=== PATIENT | female | born 2005 | race Hispanic/Latino ===

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

== ENCOUNTER 2024-02-29 15:55 | Emergency (ER) | payer BC, MEDICAID ==
[~2024-02-29] VITALS: Ht 162.6 cm; Wt 54.4 kg
--- NOTE | 2024-02-29 16:21 | ERN ---
General Chief Complaint: Abdominal Pain Stated Complaint: ABD PAIN Time Seen by MD: 16:02 History of Present Illness Initial Comments 18-year-old female who presents for lower abdominal pain. Patient reports she was in her normal state of health until about 2 hours ago. She ate tacos and afterwards developed significant abdominal discomfort. No nausea or vomiting. No diarrhea. No urinary symptoms. No vaginal bleeding or discharge. Medical history: Asthma Surgical history: Appendectomy, tonsillectomy Denies Allergies: Coded Allergies: No Known Drug Allergies (Verified Allergy, 09/13/11) Home Meds Active Scripts Acetaminophen (Acetaminophen) 500 Mg Tablet, 500 MG PO Q4PRN for 5 Days, #15 TAB Prov:JOSÉ MANUEL PLASCENCIA 04/17/23 Ibuprofen (Ibuprofen) 600 Mg Tablet, 600 MG PO Q6H PRN for PAIN, #15 TAB Prov:JOSÉ MANUEL PLASCENCIA 04/17/23 D-Methorphan Hb/P-Epd HCl/Bpm (Bromfed Dm Cough Syrup) 2 Mg-30 Mg-10 Mg/5 Ml Syrup, 5 ML PO TID for 5 Days, #100 ML Prov:JOSÉ MANUEL PLASCENCIA 04/17/23 Oseltamivir Phosphate (Tamiflu) 75 Mg Cap, 75 MG PO BID for 5 Days, #10 CAP Prov:JOSÉ MANUEL PLASCENCIA 04/17/23 Past Medical History Past Medical History: Anxiety, Asthma Past Surgical History: Appendectomy, Tonsillectomy Female( History) LMP: Feb 08, 2024 ROS Dictation CONSTITUTIONAL: No chills, no fever, no weakness, no diaphoresis, no malaise. HEAD/FACE: No signs of trauma. EENT: No eye pain, no blurred vision, no tearing, no double vision, no ear pain, no ear discharge, no nose pain, no nasal congestion, no throat pain, no throat swelling, no mouth pain. RESPIRATORY: No cough, no orthopnea, no SOB, no stridor, no wheezing. CARDIOVASCULAR: No chest pain, no edema, no palpitations, no syncope. GASTROINTESTINAL/ABDOMINAL: Generalized abdominal discomfort GENITOURINARY: No abnormal discharge, no dysuria, no frequent urination, no hematuria. No complaints pain in the genitals. MUSCULOSKELETAL: No back pain, no gout, no joint pain, no joint swelling, no muscle pain, no muscle stiffness, no neck pain. INTEGUMENTARY: No change in color, no change in hair/nails, no dryness, no lesion, no lumps, no rash. NEUROLOGICAL/PSYCH: No anxiety, not depressed, no emotional problem, no headache, no numbness, no pre-existing deficit, no history of seizures, no tremors, no weakness. HEMATOLOGIC/LYMPHATIC: Not anemic, no history of blood clots, no apparent bleeding, no bruising, glands not swollen. All Systems Negative, Except as Noted. Physical Exam Physical Exam Dictation VITAL SIGNS: Reviewed. GENERAL APPEARANCE: Alert, oriented x3, moderate distress due to pain HEAD AND FACE: Non-traumatic. EYES: PERRL, pink conjunctivas, eyelid no trauma, anterior chamber clear. EARS: Pinnas intact and no signs of trauma or erythema. Ear canals clear and no discharge. TMs no erythema. NOSE: No discharge, no bleeding. OROPHARYNX: Mouth normal, teeth no caries, tongue pink. Pharynx clear, no erythema. Tonsils no exudates, no abscesses noted. Mucous membrane moist. NECK: Supple, non-tender, no thyromegaly, no masses, no JVD, no bruits. BREAST: Deferred. CHEST: No tenderness, no crepitus, no paradoxical movement, no retractions. LUNGS: Clear, well-ventilated, symmetric, no rales, no wheezing, no rhonchi, no stridor, good breath sounds bilaterally. HEART: Regular rate, regular rhythm, no murmur, no gallops. VASCULAR: No peripheral edema. ABDOMEN: Soft, positive bowel sounds, nondistended, no guarding, nontender, no rebound, no masses no hepatomegaly, no splenomegaly, no Quarles's sign, no hernias. RECTAL: Deferred. GENITAL: Deferred. NEUROLOGICAL: Normal speech, gross motor function intact, gross sensory function intact. MUSCULOSKELETAL: Neck nontender, full range of motion, back nontender, full range of motion. EXTREMITIES: Nontender, full range of motion. SKIN: Color pink, dry, no turgor, no rash, no lacerations, no abrasions, no contusions. LYMPHATICS: Deferred. Results Laboratory and Microbiology Lab and Micro Result Laboratory Tests Test 02/29/24 16:08 White Blood Count 7.6 K/uL (4.8-10.8) Red Blood Count 4.51 MIL/uL (4.00-5.50) Hemoglobin 12.6 g/dL (12.0-16.0) Hematocrit 39.1 % (36-48) Mean Corpuscular Volume 86.7 fL (80-100) Mean Corpuscular Hemoglobin 27.9 pg (27.0-33.0) Mean Corpuscular Hemoglobin Concent 32.2 g/dL (32.0-36.0) Red Cell Distribution Width 15.1 % (11.0-15.5) Platelet Count 245 K/uL (130-400) Mean Platelet Volume 9.8 fL (7.5-10.5) Immature Granulocyte % (Auto) 0.5 % (0-1) Neutrophils (%) (Auto) 65.8 % (40.0-77.0) Lymphocytes (%) (Auto) 28.3 % (21.0-51.0) Monocytes (%) (Auto) 4.5 % (3.0-13.0) Eosinophils (%) (Auto) 0.5 % (0.0-8.0) Basophils (%) (Auto) 0.4 % (0.0-5.0) Neutrophils # (Auto) 5.0 K/uL (1.8-7.7) Lymphocytes # (Auto) 2.2 K/uL (1.0-4.8) Monocytes # (Auto) 0.3 K/uL (0.1-1.0) Eosinophils # (Auto) 0.04 K/uL (0.00-0.70) Basophils # (Auto) 0.03 K/uL (0.00-0.20) Absolute Immature Granulocyte (auto 0.04 K/uL (0-1) Segmented Neutrophils % 69 % (40-70) Band Neutrophils % 1 % (0-2) Lymphocytes % (Manual) 23 % (22-44) Monocytes % (Manual) 4 % (2-9) Basophils % (Manual) 3 % (0-2) H Nucleated Red Blood Cells 0.0 % (0.0-0.19) Differential Comment MANUAL DIFFERENTIAL White Cell Morphology Comment CONSISTENT W/DIFF Platelet Morphology Comment ADEQUATE Red Blood Cell Morphology ANISO 1+ Urine Color LIGHT-YELLOW (YELLOW) Urine Appearance CLEAR (CLEAR) Urine pH 8.5 (5.0-8.0) H Urine Specific [place] 1.018 (1.001-1.031) Urine Protein NEGATIVE mg/dL (NEGATIVE) Urine Glucose (UA) NEGATIVE mg/dL (NEGATIVE) Urine Ketones NEGATIVE mg/dL (NEGATIVE) Urine Occult Blood NEGATIVE (NEGATIVE) Urine Nitrate NEGATIVE (NEGATIVE) Urine Bilirubin NEGATIVE mg/dL (NEGATIVE) Urine Urobilinogen 0.2 mg/dL (0.2-1.0) Urine Leukocyte Esterase NEGATIVE Sarah/uL Urine HCG, Qualitative NEGATIVE (NEGATIVE) Sodium Level 137 mmol/L (136-145) Potassium Level 3.8 mmol/L (3.5-5.1) Chloride Level 103 mmol/L (101-111) Carbon Dioxide Level 29 mmol/L (21-32) Blood Urea Nitrogen 6 mg/dL (7-18) L Creatinine 0.7 mg/dL (0.5-1.0) Glomerular Filtration Rate Calc 128 mL/min (>90) Random Glucose 86 mg/dL (70-105) Total Calcium 9.1 mg/dL (8.5-10.1) Total Bilirubin 0.5 mg/dL (0.2-1.0) Direct Bilirubin 0.1 mg/dL (0.0-0.3) Aspartate Amino Transf (AST/SGOT) 19 U/L (10-37) Alanine Aminotransferase (ALT/SGPT) 19 U/L (12-78) Alkaline Phosphatase 93 U/L (50-136) Total Protein 7.4 g/dL (6.0-8.3) Albumin 3.8 g/dL (3.5-5.0) Lipase 32 U/L (16-77) MDM CC: Generalized abdominal pain after eating tacos Historian: Patient Comorbidities: Asthma Limitations by social determinants of health: None Differential diagnosis: Gastritis, cholecystitis, biliary pathology, other. Vital signs: Stable, remained stable here in the ER. Clinical exam: Soft nontender abdomen. Labs ( independently ordered and reviewed by me): CBC normal, chemistry normal, electrolytes normal, liver enzymes normal, lipase normal, urinalysis normal. Patient received IV fluids, IV Toradol, IV Zofran here in the ER. On re-evaluation the patient is asymptomatic. She reports it is better. Low suspicion for life threats at this time. We will DC with Malgorzata recommend PCP follow up as needed. ED Course Orders Procedure Category Date Status Time Vital Signs Per CPOE 02/29/24 Transmitted Routine 16:01 Saline Lock Iv CPOE 02/29/24 Transmitted 16:01 Cbc With Differential LAB 02/29/24 Complete 16:01 Lipase LAB 02/29/24 Complete 16:01 Urinalysis Profile LAB 02/29/24 Complete 16:01 Basic Metabolic Panel LAB 02/29/24 Complete 16:01 0.9%Nacl 1000ml (Ns PHA 02/29/24 Complete 1000ml) 16:30 Ondansetron 4mg Inj PHA 02/29/24 Complete (Zofran 4mg Inj) 16:30 Ketorolac PHA 02/29/24 Complete Tromethamine 15mg/Ml 16:30 ,Urine Test LAB 02/29/24 Complete 16:14 Hepatic Function Panel LAB 02/29/24 Complete 16:08 Manual Differential LAB 02/29/24 Complete 16:08 Current Medications Medications (Trade) Dose Ordered Sig/Nazia Route PRN Reason Start Time Stop Time Status Last Admin Dose Admin Ketorolac Tromethamine (toRADol) 15 mg ONCE ONCE IV 02/29/24 16:30 02/29/24 16:31 DC 02/29/24 16:29 Ondansetron HCl (zoFRAN 4MG INJ) 4 mg ONCE ONCE IVP 02/29/24 16:30 02/29/24 16:31 DC 02/29/24 16:29 Sodium Chloride 1,000 ml @ 0 mls/hr ONCE ONCE IV 02/29/24 16:30 02/29/24 16:31 DC 02/29/24 16:29 Vital Signs Date Time Temp Pulse Resp B/P (MAP) Pulse Ox O2 Delivery O2 Flow Rate FiO2 02/29/24 16:16 98.2 86 16 114/72 99 Room Air* 0 21 02/29/24 15:56 98.2 98 18 127/82 98 DX & DISP Disposition: Discharge Departure Impression: Primary Impression: Gastritis Condition: Stable Scripts Ondansetron (Ondansetron Odt) 4 Mg Tab.rapdis 1 TAB PO Q6HPRN PRN for nausea/vomiting for 4 Days, #10 TAB 0 Refills Prov: BRIAN HERRERA DO 02/29/24 Dicyclomine HCl (Bentyl) 20 Mg Tab 1 TAB PO TID for irritable bowel symptoms for 10 Days, #30 TAB 0 Refills Prov: BRIAN HERRERA DO 02/29/24 Additional Instructions: Your symptoms are likely due to food toxicity or a viral infection. These were generally clear on their own without treatment. Your lab work (CBC, BMP, liver function tests, lipase, urinalysis, hCG) are normal. You received IV fluids, IV Toradol, and IV Zofran here in the ER. I have prescribed Bentyl to use as needed for abdominal discomfort and cramping. I have prescribed Zofran to use as needed for nausea or vomiting. If you continue with symptoms I recommend he follow up with your primary doctor. If you have any concerning symptoms such as severe pain, persistent vomiting, high fevers, or any other concerning symptoms please return to the emergency department. Referrals: ROSEMARIE VERDE (PCP) BRIAN HERRERA DO Feb 29, 2024 16:21
[2024-02-29] MEDS: ketOROlac 15MG/ML VIAL (15MG/ML) IV ONE (16:29)
[2024-02-29] MEDS: 0.9%NACL 1000ML 1,000 ML IV ONE (16:29)
[2024-02-29] MEDS: ondanSETRON 4MG INJ IVP ONE (16:29)
[2024-02-29 16:32] LABS: BASOPHILS # (AUTO) 0.03 K/uL (0.00-0.20); BASOPHILS % (AUTO) 0.4 % (0.0-5.0); EOSINOPHILS # (AUTO) 0.04 K/uL (0.00-0.70); EOSINOPHILS % (AUTO) 0.5 % (0.0-8.0); HEMATOCRIT 39.1 % (36-48); IMMATURE GRANULOCYTE ABSOLUTE 0.04 K/uL (0-1); LYMPHOCYTES # (AUTO) 2.2 K/uL (1.0-4.8); LYMPHOCYTES % (AUTO) 28.3 % (21.0-51.0); MEAN CORPUSCULAR HEMOGLOBIN 27.9 pg (27.0-33.0); MEAN CORPUSCULAR HGB CONC 32.2 g/dL (32.0-36.0); MEAN CORPUSCULAR VOLUME 86.7 fL (80-100); MONOCYTES # (AUTO) 0.3 K/uL (0.1-1.0); MONOCYTES % (AUTO) 4.5 % (3.0-13.0); NEUTROPHILS % (AUTO) 65.8 % (40.0-77.0); PLATELET COUNT (AUTO) 245 K/uL (130-400); RED BLOOD CELL COUNT(AUTO) 4.51 MIL/uL (4.00-5.50); RED CELL DISTRIBUTION WIDTH 15.1 % (11.0-15.5); WHITE BLOOD COUNT (AUTO) 7.6 K/uL (4.8-10.8)
[2024-02-29 16:34] LABS: APPEARANCE,URINE CLEAR (CLEAR); BILIRUBIN,URINE NEGATIVE (NEGATIVE); COLOR,URINE LIGHT-YELLOW (YELLOW); GLUCOSE, URINE (UA) NEGATIVE (NEGATIVE); KETONES,URINE NEGATIVE (NEGATIVE); LEUKOCYTE ESTERASE ,URINE NEGATIVE Leu/uL (NEGATIVE); NITRATE,URINE NEGATIVE (NEGATIVE); OCCULT BLOOD,URINE NEGATIVE (NEGATIVE); PH,URINE 8.5 (5.0-8.0); PROTEIN,URINE NEGATIVE (NEGATIVE); UROBILINOGEN,URINE 0.2 mg/dL (0.2-1.0)
[2024-02-29 16:37] LABS: ADD UA MICROSCOPIC NO
[2024-02-29 17:05] LABS: BAND NEUTROPHILS % (MANUAL) 1 % (0-2); BASOPHILS % (MANUAL) 3 % (0-2); CREATININE 0.7 mg/dL (0.5-1.0); LYMPHOCYTES % (MANUAL) 23 % (22-44); MAN.DIFF COMMENT-IMPRESSION MANUAL DIFFERENTIAL; MONOCYTES % (MANUAL) 4 % (2-9); PLATELET MORPHOLOGY COMMENT ADEQUATE; POTASSIUM 3.8 mmol/L (3.5-5.1); SEGMENTED NEUTROPHILS % 69 % (40-70); TOTAL CELLS COUNTED 100; WBC MORPHOLOGY CONSISTENT W/DIFF
[2024-02-29 17:12] LABS: ALBUMIN 3.8 g/dL (3.5-5.0); BILIRUBIN,DIRECT 0.1 mg/dL (0.0-0.3); BILIRUBIN,TOTAL 0.5 mg/dL (0.2-1.0); TOTAL PROTEIN, SERUM 7.4 g/dL (6.0-8.3)
[2024-02-29] MEDS ORDERED: DICY20TA2 PO (17:30)
[2024-02-29] MEDS ORDERED: ONDA-243 PO (17:30)
[2024-02-29 17:42] VITALS: BP 117/73; PULSE 80; RESP 16; TEMP 98; O2SAT 98
== END 2024-02-29 17:48 | disposition home or self-care (01) ==
LOC: EDH 15:55
DX: K29.70 Gastritis, unspecified, without bleeding (principal); J45.909 Unspecified asthma, uncomplicated; F41.9 Anxiety disorder, unspecified; Z90.49 Acquired absence of other specified parts of digestive tract; Z90.89 Acquired absence of other organs
CPT/HCPCS: 99284; 96374; 96361; 96375; 80076; 80048; 83690; 85025; 81003; 81025; 36415; J7030; J2405; J1885

== ENCOUNTER 2024-10-19 15:02 | Emergency (ER) | payer BC ==
[~2024-10-19] VITALS: Ht 162.6 cm; Wt 59.0 kg
[~2024-10-19 15:02] MED LIST changes: +DICY20TA2 PO; +ONDA-243 PO
[2024-10-19 15:09] VITALS: BP 129/89; PULSE 82; RESP 18; TEMP 98.2
[2024-10-19 16:32] LABS: IMMATURE GRANULOCYTE ABSOLUTE 0.01 K/uL (0-1); NUCLEATED RED BLOOD CELLS 0.0 % (0.0-0.19); PLATELET COUNT (AUTO) 322 K/uL (130-400); RED BLOOD CELL COUNT(AUTO) 3.86 MIL/uL (4.00-5.50); RED CELL DISTRIBUTION WIDTH 14.4 % (11.0-15.5); WHITE BLOOD COUNT (AUTO) 4.3 K/uL (4.8-10.8)
[2024-10-19 16:34] LABS: APPEARANCE,URINE CLEAR (CLEAR); GLUCOSE, URINE (UA) NEGATIVE (NEGATIVE); LEUKOCYTE ESTERASE ,URINE NEGATIVE Leu/uL (NEGATIVE); NITRATE,URINE NEGATIVE (NEGATIVE); OCCULT BLOOD,URINE SMALL (NEGATIVE)
[2024-10-19 16:39] LABS: ADD UA MICROSCOPIC YES
[2024-10-19 16:45] LABS: SQUAMOUS EPITHELIAL CELL,UR RARE /HPF (0-2)
[2024-10-19 16:47] LABS: CREATININE 0.7 mg/dL (0.5-1.0); GLOMERULAR FILTR. RATE CALC 128.0 mL/min (>90); GLUCOSE,RANDOM 117.0 mg/dL (70-105); SODIUM SERUM 140.0 mmol/L (136-145); UREA NITROGEN, BLOOD 5.0 mg/dL (7-18)
[2024-10-19 17:02] LABS: HCG,QUANTITATIVE 1.0 mIU/mL (0-5)
--- NOTE | 2024-10-19 17:23 | ERN ---
ED Note History of Present Illness Stated Complaint: ABD PAIN Chief Complaint: Abdominal Pain Time Seen by MD: 15:05 Time Seen by Midlevel: 15:08 Dictation: 18-year-old female coming in with complaints of vaginal spotting intermittently for the last two weeks. Patient is stating about one month ago she was in [place] when she had severe abdominal pain and bleeding and was taken to an OBGYN and was told she had a miscarriage at about four weeks gestation. Patient states after that she got on control, and they began spotting two weeks ago. LMP 08/04/2024. Denies any medical or surgical history. Allergies: Coded Allergies: No Known Drug Allergies (Verified Allergy, 09/13/11) Home Meds Active Scripts Ondansetron (Ondansetron Odt) 4 Mg Tab.rapdis, 1 TAB PO Q6HPRN PRN for nausea/vomiting for 4 Days, #10 TAB 0 Refills Prov:BRIAN HERRERA DO 02/29/24 Dicyclomine HCl (Bentyl) 20 Mg Tab, 1 TAB PO TID for irritable bowel symptoms for 10 Days, #30 TAB 0 Refills Prov:BRIAN HERRERA DO 02/29/24 Acetaminophen (Acetaminophen) 500 Mg Tablet, 500 MG PO Q4PRN for 5 Days, #15 TAB Prov:JOSÉ MANUEL PLASCENCIA 04/17/23 Ibuprofen (Ibuprofen) 600 Mg Tablet, 600 MG PO Q6H PRN for PAIN, #15 TAB Prov:JOSÉ MANUEL PLASCENCIA 04/17/23 D-Methorphan Hb/P-Epd HCl/Bpm (Bromfed Dm Cough Syrup) 2 Mg-30 Mg-10 Mg/5 Ml Syrup, 5 ML PO TID for 5 Days, #100 ML Prov:JOSÉ MANUEL PLASCENCIA 04/17/23 Oseltamivir Phosphate (Tamiflu) 75 Mg Cap, 75 MG PO BID for 5 Days, #10 CAP Prov:JOSÉ MANUEL PLASCENCIA 04/17/23 Past Medical History Past Medical History: Anxiety, Asthma Surgical History: Appendectomy, Tonsillectomy Review of System Dictation Constitutional: Negative for fever,chills, and weight loss Eyes: Negative for injury, pain,redness, and discharge ENT: Negative for injury,pain or swelling Cardiovascular: Negative for chest pain, palpitations, and edema Respiratory: Negative for shortness of breath, cough, and wheezing, Abdomen/GI: Negative for abdominal pain, nausea, vomiting, diarrhea, and constipation Back: Negative for injury and pain : Vaginal bleeding MS/Extremity: Negative for injury and deformity Skin: Negative for rash, and discoloration Neuro: Negative for headache, weakness, numbness, tingling, and seizure Psych: Negative for suicide ideation, homicidal ideation, and hallucinations Review of Systems: was completed Initial Vital Sign VS Vital Signs Date Time Temp Pulse Resp B/P (MAP) Pulse Ox O2 Delivery O2 Flow Rate FiO2 10/19/24 15:09 98.2 82 18 129/89 98 Physical Exam Dictation General: awake, alert, NAD Head/Face: Normocephalic, atraumatic Eyes: PERRL, EOMI, vision at baseline ENT: oral cavity clear, TMs clear, no signs of infection Neck: Trachea midline, supple, no nuchal rigidity Cardiovascular: RRR, normal S1/S2, No MRGs, no JVD Respiratory: CTAB, no respiratory distress, No rales or wheezes Abdomen: Soft, non-tender, non-distended, normal bowel sounds, no guarding or rebound. Skin: Warm, dry, normal turgor, no rash MS/Extremity: Pulses equal, no cyanosis, neurovascular intact, FROM Neuro: COAx4, GCS 15, strength 5/5, CN 2-12 intact, normal cerebellar exam, normal gait, Psych: Normal behavior, mood, and affect normal Results (Laboratory/Radiology) Laboratory/Radiology Laboratory Tests Test 10/19/24 16:20 10/19/24 16:22 Urine Color COLORLESS (YELLOW) Urine Appearance CLEAR (CLEAR) Urine pH 6.5 (5.0-8.0) Urine Specific [place] 1.006 (1.001-1.031) Urine Protein NEGATIVE mg/dL (NEGATIVE) Urine Glucose (UA) NEGATIVE mg/dL (NEGATIVE) Urine Ketones NEGATIVE mg/dL (NEGATIVE) Urine Occult Blood SMALL (NEGATIVE) H Urine Nitrate NEGATIVE (NEGATIVE) Urine Bilirubin NEGATIVE mg/dL (NEGATIVE) Urine Urobilinogen 0.2 mg/dL (0.2-1.0) Urine Leukocyte Esterase NEGATIVE Sarah/uL Urine RBC 2-5 /HPF (0-1) H Urine WBC 0-1 /HPF (0-1) Urine Squamous Epithelial Cells RARE /HPF (0-2) Urine Bacteria None /HPF (None Seen) White Blood Count 4.3 K/uL (4.8-10.8) L Red Blood Count 3.86 MIL/uL (4.00-5.50) L Hemoglobin 11.1 g/dL (12.0-16.0) L Hematocrit 34.5 % (36-48) L Mean Corpuscular Volume 89.4 fL (80-100) Mean Corpuscular Hemoglobin 28.8 pg (27.0-33.0) Mean Corpuscular Hemoglobin Concent 32.2 g/dL (32.0-36.0) Red Cell Distribution Width 14.4 % (11.0-15.5) Platelet Count 322 K/uL (130-400) Mean Platelet Volume 9.9 fL (7.5-10.5) Immature Granulocyte % (Auto) 0.2 % (0-1) Neutrophils (%) (Auto) 57.1 % (40.0-77.0) Lymphocytes (%) (Auto) 34.5 % (21.0-51.0) Monocytes (%) (Auto) 6.3 % (3.0-13.0) Eosinophils (%) (Auto) 1.4 % (0.0-8.0) Basophils (%) (Auto) 0.5 % (0.0-5.0) Neutrophils # (Auto) 2.5 K/uL (1.8-7.7) Lymphocytes # (Auto) 1.5 K/uL (1.0-4.8) Monocytes # (Auto) 0.3 K/uL (0.1-1.0) Eosinophils # (Auto) 0.06 K/uL (0.00-0.70) Basophils # (Auto) 0.02 K/uL (0.00-0.20) Absolute Immature Granulocyte (auto 0.01 K/uL (0-1) Nucleated Red Blood Cells 0.0 % (0.0-0.19) Sodium Level 140 mmol/L (136-145) Potassium Level 4.0 mmol/L (3.5-5.1) Chloride Level 106 mmol/L (101-111) Carbon Dioxide Level 25 mmol/L (21-32) Blood Urea Nitrogen 5 mg/dL (7-18) L Creatinine 0.7 mg/dL (0.5-1.0) Glomerular Filtration Rate Calc 128 mL/min (>90) Random Glucose 117 mg/dL (70-105) H Total Calcium 8.9 mg/dL (8.5-10.1) Human Chorionic Gonadotropin, Quant 1 mIU/mL (0-5) Labs Reviewed?: Yes ED Course ED Course Orders Procedure Category Date Status Time Cbc With Differential LAB 10/19/24 Complete 16:15 Basic Metabolic Panel LAB 10/19/24 Complete 16:15 Hcg,Quantitative LAB 10/19/24 Complete 16:15 Urinalysis Profile LAB 10/19/24 Complete 16:15 Vital Signs Date Time Temp Pulse Resp B/P (MAP) Pulse Ox O2 Delivery O2 Flow Rate FiO2 10/19/24 15:09 98.2 82 18 129/89 98 Medical Decision Making MDM MDM: 18-year-old female coming in with complaints of vaginal spotting intermittently for the last two weeks. Patient is stating about one month ago she was in [place] when she had severe abdominal pain and bleeding and was taken to an OBGYN and was told she had a miscarriage at about four weeks gestation. Patient states after that she got on control, and they began spotting two weeks ago. LMP 08/04/2024. Denies any medical or surgical history. Blood work unremarkable. Patient isn't . That has vaginal bleeding/spotting that she is having his more than likely related to her new onset of her control. Discussed findings with the patient. Educated to follow up with PCP and OBGYN. Differential diagnosis: Early , threatened , side effects of control Rationale: Tests considered and ordered secondary to shared decision making include: Previous outside records reviewed: Old ER visits. Risk of complication and/or morbidity or mortality of patient management: None Medications-Per medication reconciliation Need for hospitalization: Patient does not meet criteria for hospitalization. Need for emergency major/minor surgery: No There are no social concerns with this patient. Prescription drug management Prescriptions will include symptomatic care Patient's prior external medical records from other ER visits were reviewed by me as indicated. Prior testing and results from previous visits were reviewed. Prior tests were taken into account with medical decision making and resource u tilization, independent historian/historians were used to obtain complete medical history. I independently interpreted the test that were performed, results were reviewed by me and considered findings on radiology if ordered. Medical management and examination interpretation discussions were had by me with other qualified healthcare professionals as indicated for the patient's ca re. DX & DISP Disposition: Discharge Departure Impression: Primary Impression: Abnormal vaginal bleeding Condition: Stable Additional Instructions: You are not . Follow up with the OBGYN. Referrals: ROSEMARIE VERDE (PCP) Time of Disposition: 17:23 I have reviewed the case, and I agree with, Diagnosis and Plan DERECK GONZALEZ NP Oct 19, 2024 17:23
== END 2024-10-19 17:54 | disposition home or self-care (01) ==
LOC: EDH 15:02
DX: N93.9 Abnormal uterine and vaginal bleeding, unspecified (principal); J45.909 Unspecified asthma, uncomplicated; F41.9 Anxiety disorder, unspecified; R10.2 Pelvic and perineal pain; Z90.49 Acquired absence of other specified parts of digestive tract; Z90.89 Acquired absence of other organs; Z98.890 Other specified postprocedural states; Z79.899 Other long term (current) drug therapy
CPT/HCPCS: 36415; 80048; 81001; 84702; 85025; 99283